=== PATIENT | male | born 1990 | race African-American/Black ===

== ENCOUNTER 2020-12-14 15:50 | Emergency (ER) | payer MEDICAID ==
[~2020-12-14] VITALS: Ht 175.3 cm; Wt 77.0 kg
[2020-12-14] MEDS ORDERED: ONDANSETRON HCL 4MG/2ML INJ IV ONE (18:30)
[2020-12-14] MEDS ORDERED: MORPHINE SULFATE 4 MG/ML CPJ (NOT FOR IM USE) IV ONE ×2 (18:30→22:00)
[2020-12-14 18:47] LABS: BASOPHILS % 0.7 % (0.0-2.0); EOSINOPHILS % 0.1 % (0.0-5.0); HEMATOCRIT. 43.7 % (42.0-52.0); LYMPHOCYTES % 10.9 % (20.0-50.0); MEAN CORPUSCULAR HEMOGLOBIN 32.4 pg (28.0-32.0); MEAN PLATELET VOLUME 7.2 fl (7.4-10.4); MONOCYTES % 6.2 % (2.0-8.0); NEUTROPHILS % 82.1 % (40.0-76.0); PLATELET 257 x1000/uL (130-400); RED BLOOD CELL COUNT 4.65 mill/uL (4.7-6.1); RED CELL DISTRIBUTION WIDTH 13.8 % (11.6-14.6)
[2020-12-14 18:54] LABS: CHLORIDE 104 mEq/L (98-107)
[2020-12-14 18:54] LABS: CLARITY URINE CLOUDY (CLEAR); COLOR URINE DARK YELLOW (YELLOW); KETONES URINE 1+ (NEGATIVE); LEUKOCYTE ESTERASE URINE TRACE (NEGATIVE); NITRITE URINE NEGATIVE (NEGATIVE); OCCULT BLOOD URINE TRACE (NEGATIVE); PH URINE 6.5 (4.5-8.0); PROTEIN URINE 1+ (NEGATIVE); SPECIFIC GRAVITY URINE 1.035 (1.005-1.030)
[2020-12-14 18:57] LABS: INR 1.1; PROTHROMBIN TIME 11.9 sec (9.6-11.0)
[2020-12-14] MEDS ORDERED: SODIUM CHLORIDE 0.9% 1,000 ML IV ONE (20:15)
[2020-12-14] MEDS ORDERED: IOHEXOL-300 100 ML BOTTLE ONE (22:29)
[2020-12-15] MEDS ORDERED: KETOROLAC 15MG/ML VIAL IV ONE (01:15)
[2020-12-15] MEDS ORDERED: POTASSIUM CHLORIDE 20MEQ TABLET SR PO SCH (01:45)
[2020-12-15 02:49] VITALS: BP 137/95
== END 2020-12-15 02:40 | disposition short-term general hospital (02) ==
LOC: ER 15:50
DX: K85.90 Acute pancreatitis without necrosis or infection, unspecified (principal); R11.2 Nausea with vomiting, unspecified; E87.6 Hypokalemia; F10.10 Alcohol abuse, uncomplicated; J45.909 Unspecified asthma, uncomplicated; Y90.0 Blood alcohol level of less than 20 mg/100 ml
CPT/HCPCS: 36415; 74177; 76705; 80053; 80320; 81003; 83690; 85025; 85610; 93005; 96361; 96374; 96375; 96376; 99285; J1885; J2270; J2405; Q9967; Z7610; G0480